=== PATIENT | male | born 1965 | race Caucasian/White ===

== ENCOUNTER 2024-05-03 07:58 | Emergency (ER) | payer SELFPAY ==
[2024-05-03] MEDS ORDERED: predniSONE 20 MG TAB ONE (08:12)
[2024-05-03] MEDS ORDERED: diphenhydrAMINE 50 MG/ML VIAL ONE (08:12)
[2024-05-03] MEDS ORDERED: Lisinopril 20 MG TAB ONE (08:26)
== END 2024-05-03 09:04 | disposition home or self-care (01) ==
LOC: BURERS 07:58
DX: T78.40XA Allergy, unspecified, initial encounter (principal); I10 Essential (primary) hypertension; Z79.899 Other long term (current) drug therapy
CPT/HCPCS: 96361; 96374; J1200; J7512

== ENCOUNTER 2025-05-03 14:06 | Outpatient (CLI) | payer OTHER | END 2025-05-03 14:07 | disposition home or self-care (01) | LOC: BURCT 14:06 | PROVIDERS: ATTEND Nurse Practitioner Family | DX: M25.552 Pain in left hip (principal); K86.89 Other specified diseases of pancreas; K57.30 Diverticulosis of large intestine without perforation or abscess without bleeding; M47.816 Spondylosis without myelopathy or radiculopathy, lumbar region; M48.07 Spinal stenosis, lumbosacral region; M16.12 Unilateral primary osteoarthritis, left hip; M16.11 Unilateral primary osteoarthritis, right hip | CPT/HCPCS: 74176 ==